=== PATIENT | male | born 1990 | race African-American/Black ===

== ENCOUNTER 2017-06-20 15:02 | Emergency (ER) | payer BC ==
[2017-06-20 15:18] VITALS: BP 127/84; PULSE 87; RESP 16; TEMP 97.2; O2SAT 96
[2017-06-20 15:18] LABS: COLOR YELLOW; LEUKOCYTE ESTERASE,URINE 2+ (NEGATIVE); NITRITE,URINE NEGATIVE (NEGATIVE); PH,URINE 5.5 (5.0-7.5)
[2017-06-20 15:28] LABS: BACTERIA 1+ /hpf (NONE SEEN); MUCUS 1+ /lpf (NONE-1+); WBC,URINE 50-182 /hpf (0-3)
[2017-06-20] MEDS ORDERED: cefTRIAXone 250 MG VIAL IM ONE (15:35)
--- NOTE | 2017-06-20 15:40 | EDPHY ---
H & P Time Seen by Provider: 06/20/17 15:14 HPI/ROS: This patient has had intermittent hematuria and some left kidney aching mild in intensity over the past 3 and half weeks. He does discover 2 days ago that he had unprotected sex with a partner who turned up positive for GC. He comes in for treatment. He reports associated mild urethral discharge and burning with urination. He notes no exacerbating factors for his symptoms. ROS: No high fevers or chills. HEENT: No conjunctivitis Pulmonary: No complaints Cardiovascular: No heart palpitations lightheadedness GI: No nausea vomiting. No pain with bowel movements and no change in his bowel movements. : No testicular pain or swelling. Integumentary: No skin rash Neuro: No complaints 10 point ROS is otherwise negative. Past Medical/Surgical History: 1 previous exposure chlamydia 2 years ago treated empirically without testing at that time with resolution of urethral discharge. Smoking Status: Never smoked Physical Exam: General Appearance: Pleasant black male Alert, no distress. Eyes: Pupils equal and round no pallor or injection. ENT, Mouth: Mucous membranes moist. Oropharynx is clear Respiratory: There are no retractions, lungs are clear to auscultation. Cardiovascular: Regular rate and rhythm. Gastrointestinal: Abdomen is soft and nontender, no masses, bowel sounds normal. : No testicular or epididymal tenderness or swelling. No active urethral discharge. Circumcised penis. No skin lesions. Neurological: GCS 15 Back: Mild left CVA tenderness. No midline tenderness Skin: Warm and dry, no rashes. Psychiatric: Mood and affect normal DIFFERENTIAL DIAGNOSIS: After history and physical exam differential diagnosis was considered for GC, Chlamydia, pyelonephritis, cystitis Constitutional: Initial Vital Signs Temperature (C) 36.2 C 06/20/17 15:16 Heart Rate 87 06/20/17 15:16 Respiratory Rate 16 06/20/17 15:16 Blood Pressure 127/84 H 06/20/17 15:16 O2 Sat (%) 96 06/20/17 15:16 O2 Delivery Mode Room Air Allergies/Adverse Reactions: No Known Allergies Allergy (Unverified 06/20/17 15:04) Home Medications: Medication Instructions Recorded Doxycycline Hyclate [Vibramycin 100 mg PO BID #20 cap 06/20/17 100 MG (*)] MDM/Departure - MDM Diagnostics: Urinalysis is positive for leukocytes and positive leuk esterase. Urine micro strongly positive with WBCs and bacteria. I spoke over the phone with attack regarding this. Given the amount of bacteria she feels confident that the GC and Chlamydia PCR can be ordered on the urinalysis even that was in a split specimen. Patient is treated with Rocephin 250 IM. Although I do not typically treat a pyelonephritis with doxycycline, this patient has minimal findings for this with no fevers and does not appear toxic at all. Given its GC exposure and risk for Chlamydia I think doxy is most appropriate choice for his treatment plan. Explain this to the patient. He will return if he has any worsening symptoms despite the treatment plan. - Depart Disposition: Home, Routine, Self-Care Clinical Impression: Exposure to gonorrhea Urinary tract infection Qualifiers: Urinary tract infection type: site unspecified Hematuria presence: with hematuria Qualified Code(s): N39.0 - Urinary tract infection, site not specified Condition: Good Instructions: Gonorrhea (ED), Urinary Tract Infection in Men (ED) Additional Instructions: Diagnosis: 1. Urinary tract infection 2. Exposure to gonorrhea Plan: Drink plenty fluids Take all of the doxycycline antibiotics-1 pill 2 times a day for 10 days Take a probiotic or yogurt while on this to prevent loose stool. Ibuprofen Tylenol for discomfort as needed. Return for any significant recurrence or worsening of symptoms despite treatment plan Stand Alone Forms: Work Excuse Prescriptions: Doxycycline Hyclate [Vibramycin 100 MG (*)] 100 mg PO BID #20 cap Referrals: NONE *PRIMARY CARE P,. [Primary Care Provider] - As per Instructions
[2017-06-21 12:19] LABS: CHLAMYDIA AMPLIFICATION GENPRB NEGATIVE (NEGATIVE)
== END 2017-06-20 15:59 | disposition home or self-care (01) ==
LOC: CED 15:02
DX: N39.0 Urinary tract infection, site not specified (principal); A54.9 Gonococcal infection, unspecified
CPT/HCPCS: 81003-PO; 81015-PO; J0696